=== PATIENT | female | born 1985 | race Caucasian/White ===

== ENCOUNTER 2019-03-20 11:01 | Outpatient (CLI) | payer OTHER ==
[2016-04-14 16:31] VITALS: BP 129/106
[2019-03-20 11:50] LABS: eGFR (Non-African) > 60
[2019-03-20 13:53] LABS: BASOPHILS % 0.5 % (0.0-1.5); NEUTROPHILS # 6.6 # k/uL (1.4-7.7)
--- NOTE | 2019-03-20 14:24 | Diagnostic Imaging Report ---
<p>Your browser does not support iframes.</p> JOHN LEWIS [facility] [address] [facility] [address] [place], [place]. [address] Report Submission Date: Mar 20, 2019 12:59:41 PM CDT Patient Study Name: KAN LARES Date: Mar 20, 2019 11:39:30 AM CDT Modality Type: DX Gender: F Description: ABDOMEN 1VIEW : 83 Institution: [facility] Physician: JOHN LEWIS Examination: Abdomen. History: PT STATES LOWER ABD PAIN, HX OF GALLBLADDER REMOVAL IN JUN. Findings: 2 views obtained of the abdomen. No abnormal dilation of the large or small bowel. Air and stool throughout the large bowel. No suspicious calcification projecting over the renal fossa or the lower pelvic region. right upper quadrant surgical clips. Osseous structures are appropriate for age. Impression: No bowel obstruction. No suspicious calcifications by plain film sensitivity. Electronically signed on Mar 20, 2019 12:59:41 PM CDT by: Rylan BERGERON
== END 2019-03-20 11:04 ==
LOC: LAB 11:01
PROVIDERS: ATTEND Nurse Practitioner Family
DX: R10.9 Unspecified abdominal pain (principal)
CPT/HCPCS: 36415; 74018; 80053; 83690; 85025

== ENCOUNTER 2019-06-19 11:12 | Emergency (ER) | payer OTHER ==
[2019-06-19] MEDS: KETOROLAC TROMETHAMINE 60 MG/2 ML VIAL IM ONE (11:48)
--- NOTE | 2019-06-19 11:54 | ED Physician Documentation ---
Sore Throat/Dental Pain - HISTORIAN Historian: patient - HPI Stated Complaint: right jaw pain Chief Complaint: Dental Pain Onset: hours Further Comments: yes (33 year old female patient presents with complaints of right lower jaw pain. Patient reports having a tooth extraction with bone graft on 06/13/[address] Epps. States she was given etodolac and an antibiotic. States she cannot take ibuprofen due to her ulcer. States she has been using tylenol and ibuprofen also. Rates pain 8-06/04.) - ROS CONST: no problems CVS/RESP: none GI/: denies: problems urinating, nausea, vomiting, other MS/SKIN/LYMPH: denies: muscle aches, rash, leg swelling, ankle swelling, other NEURO/PSYCH: none - PAST HX Past History: denies: none Allergies/Adverse Reactions: Allergies Allergy/AdvReac Type Severity Reaction Status Date / Time Latex, Natural Rubber Allergy Severe Anaphylaxis Verified 06/19/19 11:27 Sulfa (Sulfonamide Allergy Intermediate Rash Verified 06/19/19 11:27 Antibiotics) [Sulfa(Sulfonamide Antibiotics)] latex Allergy Verified 06/19/19 11:27 Home Medications: Ambulatory Orders Medication Instructions Recorded Cephalexin [Keflex] 500 mg PO TID 06/19/19 Duloxetine HCl 60 mg PO DAILY 06/19/19 Etodolac 300 mg PO Q8H PRN 06/19/19 Pregabalin 75 mg PO BID 06/19/19 - SOCIAL HX Smoking History: other (vaping) - FAMILY HX Family History: No - VITAL SIGNS Vital Signs: Vital Signs Temp Pulse Resp BP Pulse Ox 98.2 F 76 16 118/81 95 06/19/19 11:14 06/19/19 11:14 06/19/19 11:14 06/19/19 11:14 06/19/19 11:14 - REVIEWED ASSESSMENTS Nursing Assessment Reviewed: Yes Vitals Reviewed: Yes Progress - Progress Progress: Call to Dr Epps's office. Patient was given a prescription for hydrocodone on 06/13/19 #15. Has appointment in the morning at 0800. Patient had called today, reported to office staff "pain was not that bad". Per Dr Epps patient had bone graft with membrane placement; cannot have a dry socket. Patient drove to ER; called for a ride. Medicated in the ER with toradol and nubain. Instructed to follow up with Dr Epps regarding pain management. ED Results Lab/Radiology - Orders Orders: ED Orders Category Date Time Status Ketorolac Tromethamine [Toradol] Med 06/19/19 11:38 Once 60 mg IM NOW ONE Nalbuphine HCl [Nubain] Med 06/19/19 11:41 Once 10 mg IM NOW ONE Dental Pain Physical Exam - EXAM General Appearance: no acute distress, alert Head/Neck: head nml inspection, trachea midline, no lymphadenopathy, thyroid nml, neck nml inspection Eyes: eyes nml inspection, PERRL Mouth/Throat: lips nml, gums nml, pharynx nml, voice nml, no drooling, no air way problems, no thrush, membranes nml, other (right lower jaw with missing #29; open area with white membrane noted. ) Respiratory: no resp. distress CVS: reg. rate & rhythm Skin: normal color, warm/dry, NR, INT, PAL, DR Neuro/Psych: No: none Discharge Clincal Impression: Pain, dental Referrals: Nicole Ayala MD [Primary Care Provider] - 2 Days Additional Instructions: Continue your current medication regimen from your dentist. You can add 650-1000mg of Tylenol every 4 hours. Limit your dose to 4G in a 24 hour period. Keep your appointment in the morning with Dr Epps. Condition: Stable Disposition: 01 HOME, SELF-CARE Decision to Admit: NO Decision Time: 11:54
[2019-06-19] MEDS: NALBUPHINE HCL 10 MG/1 ML IM ONE (11:57)
[2019-06-19 12:19] VITALS: BP 106/84
== END 2019-06-19 12:11 | disposition home or self-care (01) ==
LOC: ED 11:12
DX: K08.89 Other specified disorders of teeth and supporting structures (principal)
CPT/HCPCS: 96372; 99284; J1885; J2300